=== PATIENT | female | born 1980 | race Caucasian/White ===

== ENCOUNTER 2016-12-18 21:45 | Inpatient (IN) | payer OTHER ==
--- NOTE | ~2016-12-18 | PN ---
Unit #: [id number] #: [id number] Patient: KAIT OAKES [id number] [facility] [address] [place] [address] [id number] MR#: [id number] NAME: KAIT OAKES ROOM: [facility] Age: 36 Sex: F Admission Date: 12/18/2016 : 1980 Attending Physician: Adalberto Knight M.D. Admitting Physician: Adalberto Knight M.D. Primary Care Physician: Primary Care Physician Bertha MOODY PROGRESS NOTES DATE 12/20/2016 DISCUSSION Ms. Kait Oakes is a 36-year-old female seen on 12/20/2016. The patient interviewed, chart reviewed. Obtained information from nursing staff. The patient was compliant and cooperative. Mood sad, dysphoric, withdrawn, isolative, guarded. The patient is currently compliant with medication. Currently on detox protocol. Complete review of systems unremarkable. MENTAL STATUS EXAMINATION General appearance, the patient dressed casually. Attention span and concentration fair. Oriented to place and person. Mood and affect sad, dysphoric. Speech monotone. Thought process concrete. Association the patient denied any thoughts of harming self but guarded. Recent and remote memory poor. Insight and judgement poor. DIAGNOSES 1. Opioid use disorder severe 2. Methamphetamine use disorder moderate 3. Mood disorder NOS ASSESSMENT/PLAN Advise to continue with current medication and therapeutic protocol. We will monitor response to medication and make further adjustment of medication. Dictated by... Bethel Prasad/mike TD: 12/23/2016 00:04 JOB #: [id number] Unit #: [id number] #: [id number] Patient: KAIT OAKES [facility] PROGRESS NOTES X Adalberto Knight MD PROGRESS NOTE
--- NOTE | ~2016-12-18 | PN ---
Unit #: [id number] #: [id number] Patient: KAIT OAKES [id number] [facility] [address] [place] [address] [id number] MR#: [id number] NAME: KAIT OAKES ROOM: [facility] Age: 36 Sex: F Admission Date: 12/18/2016 : 1980 Attending Physician: Adalberto Knight M.D. Admitting Physician: Adalberto Knight M.D. Primary Care Physician: Primary Care Physician Bertha ESTES NOTES DATE OF SERVICE: 12/21/2016 DISCUSSION Ms. Kait Oakes is a 36-year-old female, seen on 12/21/2016. The patient reported that she is still feeling very anxious, nervous, nausea, stomach upset, still having lot of withdrawal symptoms. The patient denied any thoughts of harming self or others, but seclusive, isolative, flat affect, guarded. The patient's vital signs are temperature 98.9, pulse 92, respirations 20, and blood pressure 108/76. Complete review of systems unremarkable. MENTAL STATUS EXAMINATION General appearance, the patient dressed casually. Attention span and concentration, fair. Oriented in place and person. Mood and affect were sad, dysphoric, withdrawn, isolative, guarded. The patient denied any thoughts of harming self or others or any psychotic symptom. Recent and remote memory, poor. Insight and judgment, poor. DIAGNOSES 1. Opioid use disorder, severe. 2. Methamphetamine use disorder, moderate. ASSESSMENT AND PLAN Advised to continue with current medication and therapeutic protocol. We will monitor response to medication and make further adjustment of medication. Dictated by... Bethel Prasad/zayda TD: 12/21/2016 20:09 JOB #: [id number] Unit #: [id number] #: [id number] Patient: KAIT OAKES [facility] PROGRESS NOTES X Adalberto Knight MD PROGRESS NOTE
--- NOTE | ~2016-12-18 | A ---
[facility] DATE: 12/20/16 Patient: JENN OAKES Physician: THIERNO Address: NO PERMANENT ADDRESS Room/Bed: [address], Zip: [place] [address] Admit Date: 12/18/16 Date of : [birth year] Height: 5 9 Weight: [id number] NUTRITIONAL ASSESSMENT: REASON: 1 point malnutrition risk score for unintentional weight loss Admitting Dx: 36 y/o female admitted for ETOH/heroin/meth detox PMH: PSA, chronic headaches/migraines, felisha Anthropometrics: Ht: 69", Wt: 168 lbs, BMI: 24 (normal) Labs: Reviewed; nothing significant Meds: Thiamine, Folic acid, MVI, Zofran/phenergan, Balance B-50, Milk of Mg, Loperamide, Mag-Al, psych meds noted I/O & Bowel function: No issues Assessment: Chart reviewed, events noted. Patient is undergoing polysubstance detox, showing moderate detox s/s per nursing. She is unemployed, attended college for 1 year, lives with . During the needs assessment she reported a 40 lb weight loss in the past "months," no past weights available, current BMI still WNL. Appetite reported as poor upon admission, fair yesterday, no appetite recorded today. See RD recs below. Dx: Unintentional weight loss r/t drug/ETOH abuse AEB 1 point malnutrition risk score. Intervention: See recs below Monitoring, Evaluation and Goals: 1. Adequate oral intake > 50% of meals. 2. Prevent further unintentional weight loss. Recommendations: 1. Continue regular diet, no caffeine per MD. Encourage adequate oral and fluid intake. 2. If PO is < 50% of meals please order Ensure Plus BID (available in chocolate or vanilla, requires MD order). If larger portion entree is desired please order and RD will send with lunch and dinner. 3. Please weigh q 3 days for monitoring purposes. Continue vitamins. 4. Please consult RD with any further nutritional needs. [facility] DATE: 12/20/16 Patient: JENN OAKES Physician: THIERNO Address: NO PERMANENT ADDRESS Room/Bed: [address], Zip: [place] [address] Admit Date: 12/18/16 Date of : [birth year] Height: 5 9 Weight: [id number] Mild-moderate nutrition risk Respectfully, Martine Arora RD, LD [facility] cc: client file
--- NOTE | ~2016-12-18 | HP ---
Unit #: [id number] #: [id number] Patient: JENN OAKES [id number] [place] [address] [id number] I MR#: [id number] NAME: JENN OAKES ROOM: P171 Age: 36 Sex: F Admission Date: 12/18/2016 : 1980 Attending Physician: Adalberto Knight M.D. Admitting Physician: Adalberto Knight M.D. Primary Care Physician: No Primary Care Physician HISTORY AND PHYSICAL HISTORY OF PRESENT ILLNESS The patient is a 36-year-old female admitted to [facility] on 12/19/2015 for detox from heroin. It was difficult to arouse the patient for assessment. Some of the information was retrieved from the chart. PAST MEDICAL HISTORY Migraines. PAST SURGICAL HISTORY 1. Back surgery. 2. Cholecystectomy. SOCIAL HISTORY The patient is unemployed. She smokes 1.5 packs of cigarettes daily. Drinks six wine coolers per day. Uses 1 g of heroin daily. ALLERGIES Latex. CURRENT MEDICATIONS The patient is not on any home medications. REVIEW OF SYSTEMS The patient did not answer questions about review of systems. PHYSICAL EXAMINATION GENERAL: The patient is sleepy, but is in no acute distress. VITAL SIGNS: Temperature 98.6, heart rate 99, respiratory rate 18, blood pressure 123/84, height 5'9". WEIGHT: 168 pounds. SKIN: Warm and dry without rash or lesion. HEENT: Normocephalic. TMs not viewed. Oral and nasal passages clear. Conjunctivae clear. PERRLA. EOMs intact. NECK: Supple without lymphadenopathy or thyromegaly. HEART: Regular rate and rhythm without murmur. LUNGS: Clear. ABDOMEN: Soft, nontender. : Not done. EXTREMITIES: No evidence of cyanosis, clubbing or edema. Moves all without focal deficit. NEUROLOGICAL: Grossly within normal limits. Cranial Nerves: II: Visual restrepo are intact. III, IV AND : Extraocular movements are intact. Pupils are equal, round and reactive to light. V: Facial sensation is grossly normal. VII: Facial movements Unit #: [id number] #: [id number] Patient: JENN OAKES and expression are normal. VIII: Auditory acuity grossly intact. IX, X: Uvula is midline. Phonation is normal. XI: Patient shrugs shoulders and turns head normally. XII: Tongue protrudes in the midline. Sensory and Motor Function: Sensory and motor sensation is grossly normal. Motor: moves all extremities well. ASSESSMENT 1. Psychiatric admission. 2. Migraines. 3. Heroin dependence. RECOMMENDATION Psychiatric: Per psychiatrist. Medical: No contraindications to participating in facility activities. MEDICAL PROGNOSIS Good. MEDICAL CONDITION Stable. Dictated by... Aron Arzola TD: 12/20/2016 08:16 JOB #: [id number] HISTORY AND PHYSICAL X ISAEL REYES APRN HISTORY AND PHYSICAL
--- NOTE | ~2016-12-18 | DS ---
Unit #: [id number] #: [id number] Patient: JENN OAKES [id number] [place] [address] [id number] MR#: [id number] NAME: JENN OAKES ROOM: [facility] Age: 36 Sex: F Admission Date: 12/18/2016 : 1980 Discharge Date: 12/22/2016 Attending Physician: Adalberto Knight M.D. Primary Care Physician: Primary Care Physician No DISCHARGE SUMMARY REASON FOR ADMISSION Opioid abuse. DIAGNOSTIC STUDIES LABORATORY RESULTS: Remarkable for urine drug screen positive for amphetamine and benzodiazepine. CMP remarkable for total protein 5.8, alkaline phosphatase 105. Hemoglobin 11.3. HOSPITAL COURSE The patient was admitted to inpatient unit on and treated from 12/18/2016 to 12/22/2016. The patient was treated with group therapy, individual therapy, medication management, and detox protocol. The patient responded well with the above modalities of treatment. Subsequently, the patient was discharged with a plan to follow up in outpatient program. DISCHARGE MEDICATIONS None. DISCHARGE DIAGNOSES Psychiatric: 1. Opioid use disorder, severe, F11.20. 2. Methamphetamine use disorder, moderate, F15.20. 3. Mood disorder, not otherwise specified, F32.9. Secondary diagnosis: Deferred. Medical diagnosis: None. Stressors: Psychosocial stressors. DISCHARGE INSTRUCTIONS The patient to follow up in outpatient clinic as per rn social services. CONDITION ON DISCHARGE The patient was pleasant and cooperative. Denied any psychotic symptom or any suicidal ideation. PROGNOSIS Guarded. DIET AND ACTIVITY As tolerated. Unit #: [id number] #: [id number] Patient: JENN OAKES Dictated by... Bethel Prasad/zayda TD: 12/23/2016 01:46 JOB #: [id number] DISCHARGE SUMMARY X Adalberto Knight MD X DISCHARGE SUMMARY
--- NOTE | ~2016-12-18 | PA ---
Unit #: [id number] #: [id number] Patient: KAIT WALKER [id number] [facility] [address] [place] [address] [id number] MR#: [id number] NAME: KAIT WALKER ROOM: P171 Age: 36 Sex: F Admission Date: 12/18/2016 : 1980 Date of Assessment: Attending Physician: Adalberto Knight M.D. Admitting Physician: Adalberto Knight M.D. Primary Care Physician: Primary Care Physician No PSYCHIATRIC ASSESSMENT INFORMANTS The patient reliability, fair informant and chart reliability, good. CHIEF COMPLAINT Opioid withdrawal. HISTORY OF PRESENT ILLNESS Ms. Kait Walker is a 36-year-old female. The patient presented with the above-mentioned complaint. The patient reported using IV heroin, followed by outpatient psychiatrist for depression and anxiety. The patient reported using 1 g of heroin daily from the last year. The patient reported snorting heroin and also reported drinking 6 wine cooler daily. The patient reported one point of meth a couple of weeks ago. The patient currently denied any suicidal or homicidal ideation. Alert and oriented in time, place, and person. Denied any psychotic symptom. The patient reported use of tobacco, age of onset 16; alcohol, age of onset 17; opioid, age of onset 35; and amphetamine, age of onset 36. The patient reported legal issue, losing home, and financial problem. No history of any blackout, HIV, or hepatitis. Having withdrawal symptom. History of IV drug use. Currently, reporting diarrhea, muscle cramping, shaking, headaches, depressed mood, headache, nervousness, poor concentration, and restlessness. Needing inpatient admission at this time for psychiatric stabilization. PAST PSYCHIATRIC HISTORY Remarkable for history of previous treatment, details unknown at this time. History of outpatient followup with Dr. Hawkins for depression and anxiety. FAMILY HISTORY The patient has good support system. Family psychiatric illness is remarkable for history of depression and anxiety in mother and grandmother. SOCIAL HISTORY No known history of any abuse. MEDICAL HISTORY Unremarkable for any chronic medical illness. Musculoskeletal; muscle strength and tone, no atrophy or abnormal movement. Gait normal. MEDICATION HISTORY Unit #: [id number] #: [id number] Patient: KAIT WALKER None. ALLERGIES No known drug allergies. SUBSTANCE ABUSE HISTORY Please see above. REVIEW OF SYSTEMS HEENT: Eyes, clear. Ears, nose, mouth, and throat; clear. CARDIOVASCULAR: Unremarkable. RESPIRATORY: Unremarkable. GI: Unremarkable. : Unremarkable. SKIN: Unremarkable. LYMPH NODE: Unremarkable. NEUROLOGIC: Unremarkable. ENDOCRINE: Unremarkable. HEMATOLOGIC: Unremarkable. ALLERGIC/IMMUNOLOGIC: Unremarkable. MUSCULOSKELETAL: Muscle strength and tone, no atrophy or abnormal movement. Gait normal, except as mentioned above. MENTAL STATUS EXAMINATION CONSTITUTIONAL: Measurement of vital signs; temperature 98.9, heart rate 90, respiratory rate 20, blood pressure 133/79, height 5 feet 9 inches, and weight 168 pounds. GENERAL APPEARANCE: The patient dressed casually. The patient did not show any facial deformity. MUSCULOSKELETAL: Please see above. PSYCHIATRIC EXAMINATION Description of speech; regular rate, normal volume, normal articulation, coherent, and spontaneous. Description of thought process, goal directed. Description of association, intact. Description of abnormal psychotic thinking; the patient denied any hallucination, delusions, or mood lability. Substance abuse. Description of the patient's judgment; concerning everyday activity, poor. Social situation, poor. Concerning psychiatric condition, poor. Complete mental status examination; oriented in time, place, and person. Recent and remote memory, fair. Attention span and concentration, fair. Language, able to name object and repeat phrases. Fund of knowledge, aware of current event and passive vocabulary intact. Mood and affect, sad and dysphoric. Insight and judgment, fair to poor. ASSETS AND LIABILITIES Assets, the patient is articulate and able to take care of her ADL. Liability, history of depression and substance abuse. ADMITTING DIAGNOSES Psychiatric: Opioid use disorder, severe, F11.20; methamphetamine use disorder, moderate, F15.20; and mood disorder, not otherwise specified, F32.9. Secondary diagnosis: Deferred. Medical diagnosis: None. Unit #: [id number] #: [id number] Patient: KAIT WALKER Stressors: Psychosocial stressors. PSYCHIATRIC PLAN AND TREATMENT GOAL AND DISCHARGE PLAN 1. Advised to admit the patient on the inpatient unit. Provide safe, supportive, and structured environment. 2. Ordered labs; CBC, CMP, UA, and UDS. 3. The patient to start with detox protocol and detox monitoring. 4. The patient to attend all the programing, group therapy, and individual therapy and if possible, family therapy. If needed, consider further adjustment of medication. TREATMENT GOAL To attain euthymic mood, gain insight into her problem, and learn coping skills. DISCHARGE PLAN Plan to stabilize the patient and consider followup in outpatient program. ESTIMATED LENGTH OF STAY 3 to 5 days. Dictated by... Bethel Prasad/zayda TD: 12/19/2016 17:49 JOB #: [id number] PSYCHIATRIC ASSESSMENT X Adalberto Knight MD X PSYCHIATRIC ASSESSMENT
[2016-12-19 12:36] LABS: BASOPHIL% 0.3 % (0-2.5); EOSINOPHIL# 0.3 X10e3 (0-0.7); EOSINOPHIL% 4.2 % (0.0-7.0); HEMATOCRIT 35.6 % (35.0-45.0); HEMOGLOBIN 11.3 gm/dL (12.0-16.0); LYMPHOCYTE# 3.1 X10e3 (1.0-3.5); LYMPHOCYTE% 49.7 % (17.0-45.0); MEAN CELL VOLUME 71.5 FL (83-96); MEAN CORPUSCULAR HEMOGLOBIN 22.7 PG (28-34); MEAN CORPUSCULAR HGB CONC 31.8 g/dL (30-36); MEAN PLATELET VOLUME 8.2 FL (6.5-11.5); MONOCYTE# 0.5 X10e3 (0-1.0); MONOCYTE% 7.3 % (3.0-12.0); NEUTROPHIL# 2.4 X10e3 (1.5-7.1); NEUTROPHIL% 38.5 % (40-75); PLATELET COUNT 239 X10e3 (140-420); RED BLOOD COUNT 4.98 X10e (3.90-5.30); RED CELL DISTRIBUTION WIDTH 20.4 % (11.0-15.5); WHITE BLOOD COUNT 6.2 X10e3 (4.0-10.5)
[2016-12-19 12:41] LABS: DIFF IND NO
[2016-12-19 12:48] LABS: ALBUMIN SERUM 2.8 g/dL (3.5-5.0); ALKALINE PHOSPHATASE 105 U/L (32-92); ALT (SGPT) 27 U/L (10-40); AST (SGOT) 20 U/L (10-42); BILIRUBIN,TOTAL 0.5 mg/dL (0.2-2.0); BLOOD UREA NITROGEN 10 mg/dL (9-23); BUN/CREATININE RATIO 14.28; CALCIUM SERUM 8.6 mg/dL (8.4-10.2); CARBON DIOXIDE 26 mmol/L (22-31); CHLORIDE 107 mmol/L (100-111); CREATININE SERUM 0.7 mg/dL (0.6-1.4); GLOM FILT RATE Estimated ABOVE60 mL/min (>60); GLUCOSE FASTING 89 mg/dL (70-110); POTASSIUM 4.3 mmol/L (3.5-5.1); PROTEIN TOTAL SERUM 5.8 g/dL (6.0-8.3); SODIUM 139 mmol/L (135-145)
[2016-12-19 13:05] LABS: FREE THYROXIN (T4) 1.12 ng/dL (0.58-1.64)
[2016-12-19 13:08] LABS: THYROID STIMULATING HORMONE <0.01 uIU/ml (0.34-5.60)
[2016-12-20 09:39] LABS: URINE APPEARANCE CLEAR; URINE BILIRUBIN NEG (NEG); URINE BLOOD 2+ (NEG); URINE COLOR YELLOW; URINE GLUCOSE NEG (NEG); URINE KETONE NEG (NEG); URINE LEUKOCYTE ESTERASE 3+ (NEG); URINE NITRATE NEG (NEG); URINE PH 7.5 (5-8); URINE PROTEIN NEG (NEG); URINE SPECIFIC GRAVITY 1.007 (1.003-1.035); URINE UROBILINOGEN 0.2 MG/DL (NEG)
[2016-12-20 09:42] LABS: U HYALINE CASTS AUWI 0-2 /[LPF]; URINE BACTERIA AUWI 3+ (NEGATIVE); URINE SQUAMOUS EPITHELIAL CELL OCC /[HPF]
[2016-12-20 10:22] LABS: AMPHETAMINE POS (NEG); BARBITURATES NEG (NEG); BENZODIAZEPINES POS (NEG); COCAINE NEG (NEG); MARIJUANA NEG (NEG); OPIATES NEG (NEG); TRICYCLIC ANTIDEPRESSANTS NEG (NEG); U METHADONE NEG (NEG)
[2016-12-24 09:06] LABS: HA AB IGM (HEPPAN) Nonreactive (Nonreactive); HB CORE AB IGM (HEPPAN) Nonreactive (Nonreactive); HB S AG (HEPPAN) Nonreactive (Nonreactive); HEP C AB (HEPPAN) Reactive (Nonreactive)
== END 2016-12-22 10:10 | disposition home or self-care (01) | DRG 897 ==
LOC: P1E 21:45
PROVIDERS: Psychiatry & Neurology Psychiatry
PROC: HZ2ZZZZ Detoxification Services for Substance Abuse Treatment (ICD-10-PCS; principal; 2016-12-18)
DX: F11.23 Opioid dependence with withdrawal (principal); F15.20 Other stimulant dependence, uncomplicated; F39 Unspecified mood [affective] disorder; Z56.0 Unemployment, unspecified; G43.909 Migraine, unspecified, not intractable, without status migrainosus; F41.9 Anxiety disorder, unspecified; F17.200 Nicotine dependence, unspecified, uncomplicated
CPT/HCPCS: 80053; 80074; 80307; 81003; 84439; 84443; 84703; 85025; 86592; 87522; 87806